=== PATIENT | male | born 1970 | race Caucasian/White ===

== ENCOUNTER 2017-05-10 18:33 | Emergency (ER) | payer OTHER ==
[~2017-05-10] VITALS: Ht 172.7 cm; Wt 77.5 kg
[2017-05-10 18:38] VITALS: Ht 172.7 cm; Wt 77.5 kg
[2017-05-10] MEDS ORDERED: IBUPROFEN 600 MG TAB PO ONE (19:00)
[2017-05-10] MEDS ORDERED: CEPHALEXIN 500 MG CAP PO ONE (19:00)
[2017-05-10] MEDS ORDERED: TRIMETHOPRIM/SULFAMETHOX (DS) TAB PO ONE (19:00)
[2017-05-10] MEDS ORDERED: CEPH-443 PO (19:41)
[2017-05-10] MEDS ORDERED: SULF1TAB31 PO (19:41)
[2017-05-10] MEDS ORDERED: LIDOCAINE 1%/EPI 30 ML INJ INJ STA (19:48)
--- NOTE | 2017-05-10 20:18 | RADRPT ---
PROCEDURE: XR Left Ankle. CLINICAL INDICATION: Injury. Pain. TECHNIQUE: Three views of the left ankle were performed. COMPARISON: None. FINDINGS: There is lateral malleolar subcutaneous soft tissue swelling. There is no underlying fracture. Lizz nt relationships are maintained. Ankle mortise is intact. Bone mineralization is within normal srinivasan its. There is small posterior calcaneal bone spur. IMPRESSION: Lateral malleolar subcutaneous soft tissue swelling without underlying fracture. Small posterior gianluca caneal bone spur. RPTAT: [facility] .Kevin Cota MD, Date Time Electronically viewed and signed by .Kevin Cota MD, on 05/10/2017 20:18 .K/
[2017-05-10 20:41] VITALS: BP 116/73; PULSE 93; RESP 16
--- NOTE | 2017-05-10 21:49 | ERD ---
ER Documentation Chief Complaint Chief Complaint left ankle swelling today, denies injury HPI 47-year-old male with a history of HIV with last T-cell count being 935 checked couple months ago complaining of left lateral ankle pain for the past day. Patient denies any trauma, he states the pain is moderate in severity. Patient states that he has a blister on the left lateral ankle that he is unsure how he got that ROS All systems reviewed and are negative except as per history of present illness. Medications Home Meds Active Scripts Sulfamethoxazole/Trimethoprim* (Bactrim Ds* Tablet) 1 Each Tablet, 1 TAB PO BID , #14 TAB Prov:ALEXA LOWERY PA-C 05/10/17 Cephalexin* (Keflex*) 500 Mg Capsule, 500 MG PO QID for 10 Days, CAP Prov:ALEXA LOWERY PA-C 05/10/17 Allergies Allergies: Coded Allergies: No Known Allergy (Unverified , 05/10/17) PMhx/Soc Anesthesia Reaction: No Hx Neurological Disorder: No Hx Respiratory Disorders: No Hx Cardiac Disorders: No Hx Psychiatric Problems: No Hx Miscellaneous Medical Probl: Yes (HIV) Hx Alcohol Use: No Hx Substance Use: No Hx Tobacco Use: Yes Smoking Status: Current every day smoker Physical Exam Vitals Vital Signs Date Time Temp Pulse Resp B/P Pulse Ox O2 Delivery O2 Flow Rate FiO2 05/10/17 20:41 93 16 116/73 96 Room Air 05/10/17 18:38 98.3 101 20 130/84 100 Physical Exam General: WD/WN, in no apparent distress, non-toxic appearing HENT: NC/AT Eyes: Conjunctiva normal Neck: Supple Pulm: Clear to auscultation, normal labored breathing; no wheezing/rales/ rhonchi heard CV: Good capillary refill GI: Non-distended, no guarding Back: No masses Ext: Tender to palpation of the left lateral ankle Neuro: Moves on all fours Skin: Warmth, erythema on the left lateral ankle with a fluctuant blister versus abscess Psych: Normal mood Result Diagram: 05/10/17191905/10/171919 Results 24 hrs Laboratory Tests Test 05/10/17 19:20 White Blood Count 14.910^3/ul Red Blood Count 4.3610^6/ul Hemoglobin 13.8g/dl Hematocrit 41.2% Mean Corpuscular Volume 94.5fl Mean Corpuscular Hemoglobin 31.7pg Mean Corpuscular Hemoglobin Concent 33.5g/dl Red Cell Distribution Width 12.3% Platelet Count 83003^3/UL Mean Platelet Volume 8.3fl Neutrophils % 70.2% Lymphocytes % 18.7% Monocytes % 9.1% Eosinophils % 1.3% Basophils % 0.2% Nucleated Red Blood Cells % 0.0/100WBC Neutrophils # 10.410^3/ul Lymphocytes # 2.810^3/ul Monocytes # 1.410^3/ul Eosinophils # 0.210^3/ul Basophils # 0.010^3/ul Nucleated Red Blood Cells # 0.010^3/ul Sodium Level 144mmol/L Potassium Level 4.7mmol/L Chloride Level 105mmol/L Carbon Dioxide Level 28mmol/L Anion Gap 16 Blood Urea Nitrogen 19mg/dl Creatinine 1.15mg/dl Glucose Level 80mg/dl Calcium Level 9.3mg/dl Total Bilirubin 0.1mg/dl Direct Bilirubin 0.00mg/dl Indirect Bilirubin 0.1mg/dl Aspartate Amino Transf (AST/SGOT) 25IU/L Alanine Aminotransferase (ALT/SGPT) 30IU/L Alkaline Phosphatase 87IU/L Total Protein 7.9g/dl Albumin 4.5g/dl Globulin 3.40g/dl Albumin/Globulin Ratio 1.32 Current Medications Medications (Trade) Dose Ordered Sig/Jodie Route PRN Reason Start Time Stop Time Status Last Admin Dose Admin Cephalexin (Keflex) 500 mg ONCE ONCE PO 05/10/17 19:00 05/10/17 19:01 DC 05/10/17 19:05 Trimethoprim/ Sulfamethoxazole (Bactrim (Ds)) 1 tab ONCE ONCE PO 05/10/17 19:00 05/10/17 19:01 DC 05/10/17 19:05 Ibuprofen (Motrin) 600 mg ONCE ONCE PO 05/10/17 19:00 05/10/17 19:01 DC 05/10/17 19:05 Lidocaine/ Epinephrine (Xylocaine 1%/ Epi (Pf)) 30 ml ONCE STAT INJ 05/10/17 19:48 05/10/17 19:49 DC Procedures/MDM This is a 47-year-old male presenting to the emergency department with signs and symptoms most consistent with cellulitis on the left lateral ankle. Patient is aseptic. On examination, it appeared initially that patient had a small bloster on the ledft lateral ankle, the region was cleansed with Betadine. A sterile needle was used and serosanguineous fluid with mild purulence was drained. There was no evidence of tendon or arterial damage. There was no evidence of osteomyelitis, lymphangitis, necrotizing fasciitis. Hemodynamically stable. Patient was given Keflex and Bactrim, prescription for outpatient. Discussed two day wound check. return sooner if condition worsens. Patient understood and agreed with this plan. Departure Diagnosis: Primary Impression: Cellulitis Additional Impression: Abscess Condition: Stable Patient Instructions: Cellulitis, Abscess, Incision And Drainage Additional Instructions: FOLLOW UP WITH YOUR PRIMARY CARE PHYSICIAN TOMORROW.Return to this facility if you are not improving as expected. Take all medicines as directed.Return to this facility if you are not improving as expected. Follow up in 2 days in your clinic for wound check. ALEXA LOWERY PA-C May 10, 2017 21:49
== END 2017-05-10 20:42 | disposition home or self-care (01) ==
LOC: FTE 18:33
DX: L03.116 Cellulitis of left lower limb (principal); L02.416 Cutaneous abscess of left lower limb; F17.210 Nicotine dependence, cigarettes, uncomplicated
CPT/HCPCS: 10160; 73610; 80053; 85025; Z7502; Z7610

== ENCOUNTER 2017-05-13 17:54 | Emergency (ER) | payer SELFPAY ==
[~2017-05-13] VITALS: Wt 77.0 kg
[~2017-05-13 17:54] MED LIST: CEPH-443 PO; SULF1TAB31 PO
== END 2017-05-13 21:00 | disposition left against medical advice (07) ==
LOC: FTE 17:54
DX: Z53.21 Procedure and treatment not carried out due to patient leaving prior to being seen by health care provider (principal)

== ENCOUNTER 2017-05-14 06:50 | Emergency (ER) | payer MEDICAID ==
[~2017-05-14] VITALS: Ht 172.7 cm; Wt 77.0 kg
[2017-05-14 06:52] VITALS: Ht 172.7 cm; Wt 77.0 kg
--- NOTE | 2017-05-14 07:35 | ERD ---
ER Documentation Chief Complaint Chief Complaint patient here for a wound check left ankle HPI This is a 47 -year-old male who presents the emergency department today for a wound check of the wound that he had evaluated 5 days ago. Patient states he is taking his antibiotics and denies any fevers or chills. ROS All systems reviewed and are negative except as per history of present illness. Medications Home Meds Active Scripts Sulfamethoxazole/Trimethoprim* (Bactrim Ds* Tablet) 1 Each Tablet, 1 TAB PO BID , #14 TAB Prov:ALEXA LOWERY PA-C 05/10/17 Cephalexin* (Keflex*) 500 Mg Capsule, 500 MG PO QID for 10 Days, CAP Prov:ALEXA LOWERY PA-C 05/10/17 Allergies Allergies: Coded Allergies: No Known Allergy (Unverified , 05/10/17) PMhx/Soc Anesthesia Reaction: No Hx Neurological Disorder: No Hx Respiratory Disorders: No Hx Cardiac Disorders: No Hx Psychiatric Problems: No Hx Miscellaneous Medical Probl: Yes (HIV) Hx Alcohol Use: No Hx Substance Use: No Hx Tobacco Use: Yes Smoking Status: Current every day smoker Physical Exam Vitals Vital Signs Date Time Temp Pulse Resp B/P Pulse Ox O2 Delivery O2 Flow Rate FiO2 05/14/17 06:52 96.8 91 20 141/77 98 Physical Exam Const: NAD Head: Atraumatic Eyes: Normal Conjunctiva ENT: Normal External Ears, Nose and Mouth. Neck: Full range of motion..~ No meningismus. Resp: Clear to auscultation bilaterally Cardio: Regular rate and rhythm, no murmurs Abd: Soft, non tender, non distended. Normal bowel sounds Skin: Left ankle with evidence of wound with clear drainage and localized erythema. Full active range of motion ankle. Pulses 2+. Distal neurovascularly intact. Back: No midline or flank tenderness Ext: No cyanosis, or edema Neur: Awake and alert Psych: Normal Mood and Affect Procedures/MDM This is a 47-year-old male who presents the emergency department today for a wound check of a wound that he had evaluated 5 days ago. Patient came to the emergency department yesterday but left without being seen. Upon review of patient's medical records he was seen here on May 10 and diagnosed with cellulitis. He did appear to have a small blister at that time and the area was drained with a needle. Patient was given a prescription for Bactrim and Keflex which he states he is taking. Patient is HIV positive and he did have laboratory work done that showed an elevated white blood cell count but was otherwise within normal limits. Patient maintains that he continues to be afebrile. Patient does take antiretrovirals and does have a primary care physician. Low suspicion for sepsis, deep space tracking infection, osteomyelitis. Dr. Soler did see and evaluate the wound and she feels the patient is stable for discharge and outpatient management. I did instruct the patient to continue taking his antibiotics as prescribed. He may return here again in 48 hours for a wound check or he may follow-up with his primary care doctor as he does state that he does have good follow-up. Patient understood. At this time the patient is stable for discharge and outpatient management. Patient should follow up with their PCP in the next 1-2 days. They may return to the emergency department sooner for any persistent or worsening of symptoms. Patient understood and agreed with the plan. Departure Diagnosis: Primary Impression: Encounter for wound re-check Condition: Fair Patient Instructions: Wound Care Referrals: your PCP Additional Instructions: Call your primary care doctor TOMORROW for an appointment during the next 1-2 days.See the doctor sooner or return here if your condition worsens before your appointment time. Wound check in 48 hours. Keep wound clean and dry. Continue taking antibiotics as prescribed. Take Tylenol or Motrin for pain. GIULIANA SUGGS PA-C May 14, 2017 07:35
== END 2017-05-14 07:36 | disposition home or self-care (01) ==
LOC: FTE 06:50
DX: Z48.01 Encounter for change or removal of surgical wound dressing (principal); F17.210 Nicotine dependence, cigarettes, uncomplicated
CPT/HCPCS: 99281